=== PATIENT | female | born 1950 | race Two or more races ===

== ENCOUNTER 2022-06-06 11:55 | Inpatient (IN) | payer OTHER ==
[~2022-06-06] VITALS: Ht 162.6 cm; Wt 81.6 kg
[2022-06-06] MEDS ORDERED: GLUMETZA1000 MG PO (13:04)
[2022-06-06] MEDS ORDERED: ZANTAC25 MG/1 ML IJ (13:05)
[2022-06-06] MEDS ORDERED: SIMVASTATIN20 MG PO (13:05)
[2022-06-06] MEDS ORDERED: GABAPENTIN800 M1 PO (13:06)
[2022-06-06] MEDS ORDERED: HYDROCHLOROTHIA25 MG PO (13:06)
[2022-06-06] MEDS ORDERED: SYNTHROID50 MCG PO (13:06)
--- NOTE | 2022-06-06 13:08 | NUR ---
PTE ALERTA Y ORIENTADA X3 REFIERE TENER FIEBRE, DOLOR DE CUERPO, DOLOR DE TRU Y PIES EDEMATODOS.
== END 2022-06-14 21:20 | disposition home or self-care (01) | DRG 292 ==
LOC: ER 11:55 → MEDJ 22:24 → SEC-K 22:24 → MEDI 22:24 → MEDJ 06-07 08:27
PROVIDERS: ADMIT Internal Medicine; ATTEND Internal Medicine
PROC: B24BZZZ Ultrasonography of Heart with Aorta (ICD-10-PCS; principal; 2022-06-06)
PROC: BW21ZZZ Computerized Tomography (CT Scan) of Abdomen and Pelvis (ICD-10-PCS; 2022-06-06)
PROC: 4A12X4Z Monitoring of Cardiac Electrical Activity, External Approach (ICD-10-PCS; 2022-06-07)
DX: I13.0 Hypertensive heart and chronic kidney disease with heart failure and stage 1 through stage 4 chronic kidney disease, or unspecified chronic kidney disease (principal); I50.30 Unspecified diastolic (congestive) heart failure; I85.00 Esophageal varices without bleeding; N17.8 Other acute kidney failure; R06.02 Shortness of breath; N18.9 Chronic kidney disease, unspecified; K76.82 Hepatic encephalopathy; K74.69 Other cirrhosis of liver; E87.6 Hypokalemia; R60.1 Generalized edema; I25.10 Atherosclerotic heart disease of native coronary artery without angina pectoris; I35.0 Nonrheumatic aortic (valve) stenosis; E03.9 Hypothyroidism, unspecified; E11.9 Type 2 diabetes mellitus without complications; Z79.4 Long term (current) use of insulin

== ENCOUNTER 2022-07-19 14:57 | Inpatient (IN) | payer OTHER ==
[~2022-07-19] VITALS: Ht 162.6 cm; Wt 76.2 kg
[~2022-07-19 14:57] MED LIST: GABAPENTIN800 M1 PO; GLUMETZA1000 MG PO; HYDROCHLOROTHIA25 MG PO; SIMVASTATIN20 MG PO; SYNTHROID50 MCG PO; ZANTAC25 MG/1 ML IJ
--- NOTE | 2022-07-19 15:13 | NUR ---
SE RECIBE PTE ALERTA Y ORIENTADO, PTE REFIERE TENER DOLOR GENERAL, PTE REFIERE DOLOR EN EXTREMIDADES, PTE REFIERE QUE TIENE LIQUIDO. SE REALIZA EKG Y SE PRESENTA DR. NOEL. SE MAXIMILIANO VITALES Y SE VICTORIA EN OBSERVACION.
--- NOTE | 2022-07-19 17:54 | NUR ---
PTE FEMENINA EVALUADA POR . SE ORIENTA SOBRE ORDENES DE [place] REFIERE COMPRENDER. SE COLECTAN MUESTRAS DE LABORATORIOS, BAJO MEDIDAS ASEPTICAS. SE NOTIFICA A RADIOLOGIA PARA XRAY.
== END 2022-07-22 19:30 | disposition home or self-care (01) | DRG 291 ==
LOC: ER 14:57 → MEDJ 20:57
PROVIDERS: ADMIT Internal Medicine; ATTEND Internal Medicine
PROC: B246ZZZ Ultrasonography of Right and Left Heart (ICD-10-PCS; principal; 2022-07-19)
PROC: 4A12X4Z Monitoring of Cardiac Electrical Activity, External Approach (ICD-10-PCS; 2022-07-20)
DX: I13.0 Hypertensive heart and chronic kidney disease with heart failure and stage 1 through stage 4 chronic kidney disease, or unspecified chronic kidney disease (principal); I50.33 Acute on chronic diastolic (congestive) heart failure; E72.4 Disorders of ornithine metabolism; N18.9 Chronic kidney disease, unspecified; E11.22 Type 2 diabetes mellitus with diabetic chronic kidney disease; R60.0 Localized edema; K76.89 Other specified diseases of liver; Z79.4 Long term (current) use of insulin; E03.8 Other specified hypothyroidism